=== PATIENT | female | born 1980 | race Caucasian/White ===

== ENCOUNTER 2018-01-17 12:59 | Emergency (ER) | payer MEDICARE, MEDICAID ==
[~2018-01-17] VITALS: Ht 162.6 cm; Wt 100.5 kg
[~2018-01-17 12:59] MED LIST: CYCL-1 PO
[2018-01-17 14:19] VITALS: BP 144/94
== END 2018-01-17 14:21 | disposition home or self-care (01) ==
LOC: ER 13:00
DX: R51 Headache (principal); G89.29 Other chronic pain; Z79.899 Other long term (current) drug therapy
CPT/HCPCS: 99281

== ENCOUNTER 2019-09-01 15:46 | Emergency (ER) | payer MEDICARE, MEDICAID ==
[~2019-09-01] VITALS: Ht 162.6 cm; Wt 69.4 kg
[2019-09-01] MEDS ORDERED: ibuprofen tablet 400 MG TABLET PO ONE (16:50)
[2019-09-01] MEDS ORDERED: IBUP-1984 PO (16:51)
[2019-09-01 17:28] VITALS: BP 140/85
== END 2019-09-01 17:16 | disposition home or self-care (01) ==
LOC: ER 15:46
DX: S93.401A Sprain of unspecified ligament of right ankle, initial encounter (principal); G47.30 Sleep apnea, unspecified; G89.29 Other chronic pain; Z98.890 Other specified postprocedural states; Z88.6 Allergy status to analgesic agent; Z79.899 Other long term (current) drug therapy; W01.0XXA Fall on same level from slipping, tripping and stumbling without subsequent striking against object, initial encounter; Y93.89 Activity, other specified; Y92.89 Other specified places as the place of occurrence of the external cause; Y99.8 Other external cause status
CPT/HCPCS: 29515; 73610; 99284

== ENCOUNTER 2019-10-03 13:06 | Emergency (ER) | payer MEDICARE, MEDICAID ==
[~2019-10-03] VITALS: Ht 162.6 cm; Wt 100.0 kg
[2019-10-03 13:17] VITALS: BP 143/86
[2019-10-03] MEDS ORDERED: ALBU6.7H9 INH (13:43)
[2019-10-03] MEDS ORDERED: AZIT250T2 PO (13:43)
== END 2019-10-03 13:51 | disposition home or self-care (01) ==
LOC: ER 13:06
DX: J40 Bronchitis, not specified as acute or chronic (principal); G47.30 Sleep apnea, unspecified; G89.29 Other chronic pain; Z98.890 Other specified postprocedural states; Z79.899 Other long term (current) drug therapy
CPT/HCPCS: 99283

== ENCOUNTER 2020-02-23 04:41 | Emergency (ER) | payer MEDICARE, MEDICAID ==
[~2020-02-23] VITALS: Ht 162.6 cm; Wt 106.8 kg
[~2020-02-23 04:41] MED LIST changes: +ALBU6.7H9 INH
[2020-02-23 04:45] VITALS: BP 157/84
[2020-02-23] MEDS ORDERED: PENI500T2 PO (05:02)
== END 2020-02-23 05:24 | disposition home or self-care (01) ==
LOC: ER 04:43
DX: K02.9 Dental caries, unspecified (principal); G47.30 Sleep apnea, unspecified; G89.29 Other chronic pain; Z98.890 Other specified postprocedural states; R68.84 Jaw pain; Z79.899 Other long term (current) drug therapy
CPT/HCPCS: 99283

== ENCOUNTER 2020-02-27 04:43 | Emergency (ER) | payer MEDICARE, MEDICAID ==
[~2020-02-27] VITALS: Ht 162.6 cm; Wt 100.0 kg
[~2020-02-27 04:43] MED LIST changes: +PENI500T2 PO
[2020-02-27 04:49] VITALS: BP 161/109
[2020-02-27] MEDS ORDERED: HYDR-4383 PO (06:07)
== END 2020-02-27 06:20 | disposition home or self-care (01) ==
LOC: ER 04:45
DX: M26.602 Left temporomandibular joint disorder, unspecified (principal); K08.89 Other specified disorders of teeth and supporting structures; G47.30 Sleep apnea, unspecified; G89.29 Other chronic pain; Z98.890 Other specified postprocedural states; Z79.899 Other long term (current) drug therapy
CPT/HCPCS: 99282; 99283

== ENCOUNTER 2020-05-21 16:32 | Emergency (ER) | payer MEDICARE, MEDICAID ==
[~2020-05-21] VITALS: Ht 162.6 cm; Wt 100.0 kg
[~2020-05-21 16:32] MED LIST changes: +HYDR-4383 PO; -PENI500T2 PO
[2020-05-21 16:51] VITALS: BP 130/78
--- NOTE | 2020-05-21 20:07 | NUR ---
vascular at bedside.
== END 2020-05-21 20:47 | disposition home or self-care (01) ==
LOC: ER 16:33
DX: M79.661 Pain in right lower leg (principal); R73.03 Prediabetes; G47.30 Sleep apnea, unspecified; G89.29 Other chronic pain; F17.200 Nicotine dependence, unspecified, uncomplicated; Z90.710 Acquired absence of both cervix and uterus; Z79.899 Other long term (current) drug therapy; Z86.718 Personal history of other venous thrombosis and embolism
CPT/HCPCS: 93971; 99284

== ENCOUNTER 2020-08-05 14:36 | Emergency (ER) | payer MEDICARE, MEDICAID ==
[~2020-08-05] VITALS: Ht 162.6 cm; Wt 100.5 kg
[2020-08-05 14:54] VITALS: BP 153/90
[2020-08-05] MEDS ORDERED: AMOX-422 PO (15:46)
== END 2020-08-05 15:58 | disposition home or self-care (01) ==
LOC: ER 14:37
DX: K04.7 Periapical abscess without sinus (principal); G89.29 Other chronic pain; G47.30 Sleep apnea, unspecified; Z98.890 Other specified postprocedural states; Z79.899 Other long term (current) drug therapy
CPT/HCPCS: 99283

== ENCOUNTER 2020-08-26 09:44 | Emergency (ER) | payer MEDICARE, MEDICAID ==
[~2020-08-26] VITALS: Ht 162.6 cm; Wt 100.0 kg
[2020-08-27] MEDS ORDERED: ALBU8HFA PO (11:49)
== END 2020-08-26 10:25 | disposition home or self-care (01) ==
LOC: ER 09:46
DX: B34.9 Viral infection, unspecified (principal); Z20.822 Contact with and (suspected) exposure to COVID-19; G47.30 Sleep apnea, unspecified; G89.29 Other chronic pain; Z98.891 History of uterine scar from previous surgery; Z79.899 Other long term (current) drug therapy
CPT/HCPCS: 36415; 87635; 99283

== ENCOUNTER 2020-08-26 19:02 | Emergency (ER) | payer MEDICARE, MEDICAID ==
[~2020-08-26] VITALS: Ht 162.6 cm; Wt 100.0 kg
[2020-08-27] MEDS ORDERED: ALBU8HFA PO (11:49)
== END 2020-08-26 19:35 | disposition home or self-care (01) ==
LOC: ER 19:03
DX: R05 Cough (principal); M79.10 Myalgia, unspecified site; G47.30 Sleep apnea, unspecified; G89.29 Other chronic pain; Z98.891 History of uterine scar from previous surgery; Z79.899 Other long term (current) drug therapy
CPT/HCPCS: 99282

== ENCOUNTER 2020-08-27 11:02 | Emergency (ER) | payer MEDICARE, MEDICAID ==
[2020-08-27] MEDS ORDERED: ALBU8HFA PO (11:49)
--- NOTE | 2020-08-27 12:04 | NUR ---
Lab went to [facility] area to draw pt, but was unable to locate her.
--- NOTE | 2020-08-27 12:17 | NUR ---
Pauline RN currently assigned RAP was in a code and had not engaged w/ this pt.PA Fields aware pt not around.
--- NOTE | 2020-08-27 12:35 | NUR ---
Called patient and discussed need to be seen. patient stated that, "I saw so many ambulances, I just wasn't sure how long the wait would be." Patient proceeded to inform me that she got a ride over to [facility] to be seen in the ER there. Patient stated that she thinks its anxiety and that she will just go home and if getting worse will come back to ED. I educated her that its her decision overall and that we will be here whenever she needs to be seen. Patient agreed, stating that she was just awaiting a ride home from [facility].
== END 2020-08-27 12:58 | disposition left against medical advice (07) ==
LOC: ER 11:03
DX: R06.00 Dyspnea, unspecified (principal); R07.89 Other chest pain; G89.29 Other chronic pain; Z98.890 Other specified postprocedural states; Z79.899 Other long term (current) drug therapy
CPT/HCPCS: 99283

== ENCOUNTER 2020-11-03 20:30 | Emergency (ER) | payer MEDICARE, MEDICAID ==
[~2020-11-03] VITALS: Ht 162.6 cm; Wt 90.9 kg
[2020-11-03 20:34] VITALS: BP 149/94
--- NOTE | 2020-11-03 20:40 | NUR ---
PATIENT TAKES KRATOM DAILY
== END 2020-11-03 23:22 | disposition home or self-care (01) ==
LOC: ER 20:30
DX: H92.02 Otalgia, left ear (principal); F17.200 Nicotine dependence, unspecified, uncomplicated; G89.29 Other chronic pain; G47.30 Sleep apnea, unspecified; Z98.890 Other specified postprocedural states; Z79.899 Other long term (current) drug therapy
CPT/HCPCS: 99283

== ENCOUNTER 2022-07-08 18:48 | Emergency (ER) | payer MEDICARE, MEDICAID ==
[~2022-07-08] VITALS: Ht 162.6 cm; Wt 86.4 kg
[~2022-07-08 18:48] MED LIST changes: +ALBU6.7H14 INH; -ALBU6.7H9 INH
[2022-07-08 19:01] VITALS: BP 140/93
[2022-07-08 19:44] LABS: BASOPHILS % (AUTO) 0.6 % (0-1); EOSINOPHILS # (AUTO) 0.2 X10'3 (0-0.9); EOSINOPHILS % (AUTO) 2.4 % (0-6); HEMATOCRIT 39.2 % (35.0-45.0); HEMOGLOBIN 13.3 g/dl (12.0-16.0); LYMPHOCYTES # (AUTO) 1.6 X10'3 (1.1-4.8); LYMPHOCYTES % (AUTO) 22.9 % (21-51); MEAN CORPUSCULAR HEMOGLOBIN 30.7 PG (27.0-31.0); MEAN CORPUSCULAR HGB CONC 33.9 g/dL (33.0-36.5); MEAN CORPUSCULAR VOLUME 90.4 FL (78-98); MEAN PLATELET VOLUME 6.7 FL (7.4-10.4); MONOCYTES # (AUTO) 0.3 X10'3 (0-0.9); MONOCYTES % (AUTO) 4.5 % (2-12); NEUTROPHILS # (AUTO) 4.9 X10'3 (1.8-7.7); NEUTROPHILS % (AUTO) 69.6 % (42-75); PLATELET COUNT 249 X10'3 (140-440); RED BLOOD COUNT 4.34 X10'6 (4.20-5.60); RED CELL DISTRIBUTION WIDTH 13.3 % (11.5-14.5); WHITE BLOOD COUNT 7.1 X10'3 (4.5-11.0)
[2022-07-08 19:59] LABS: ALANINE AMINOTRANSFERASE 39 U/L (12-78); ALBUMIN 3.6 G/DL (3.4-5.0); ALKALINE PHOSPHATASE 105 IU/L (46-116); ANION GAP 7 (8-16); ASPARTATE AMINO TRANSFERASE 25 U/L (10-37); BILIRUBIN,TOTAL 0.2 MG/DL (0.1-1.0); BLOOD UREA NITROGEN 15 MG/DL (7-18); BUN/CREATININE RATIO 24.2 (6.6-38.0); CALCIUM 8.3 MG/DL (8.5-10.1); CHLORIDE 106 MMOL/L (99-107); CREATININE 0.62 MG/DL (0.40-0.90); GLUCOSE 105 MG/DL (70-104); LIPASE 78 U/L (73-393); POTASSIUM 3.8 MMOL/L (3.5-5.1); SODIUM 141 MMOL/L (135-145); TOTAL CARBON DIOXIDE 27.8 MMOL/L (24-32); TOTAL PROTEIN 7.2 G/DL (6.4-8.2); eGFR > 90 ML/MIN
== END 2022-07-08 23:44 | disposition left against medical advice (07) ==
LOC: ER 18:48
DX: R10.31 Right lower quadrant pain (principal); Z53.21 Procedure and treatment not carried out due to patient leaving prior to being seen by health care provider
CPT/HCPCS: 36415; 80053; 83690; 85025; 99283

== ENCOUNTER 2023-05-27 23:09 | Emergency (ER) | payer MEDICARE, MEDICAID ==
[~2023-05-27] VITALS: Ht 162.6 cm; Wt 85.0 kg
[2023-05-28] MEDS ORDERED: NO HOME MEDS (00:16)
[2023-05-28 00:31] LABS: BASOPHILS # (AUTO) 0.1 X10'3 (0-0.2); EOSINOPHILS # (AUTO) 0.1 X10'3 (0-0.9); MONOCYTES # (AUTO) 0.4 X10'3 (0-0.9); PLATELET COUNT 221 X10'3 (140-440)
[2023-05-28 00:37] LABS: BASOPHILS % (AUTO) 1.1 % (0-1); EOSINOPHILS % (AUTO) 1.2 % (0-6); HEMATOCRIT 39.3 % (35.0-45.0); HEMOGLOBIN 13.7 g/dl (12.0-16.0); LYMPHOCYTES # (AUTO) 2.2 X10'3 (1.1-4.8); LYMPHOCYTES % (AUTO) 26.8 % (21-51); MEAN CORPUSCULAR HEMOGLOBIN 30.6 PG (27.0-31.0); MEAN CORPUSCULAR HGB CONC 34.8 g/dL (33.0-36.5); MEAN CORPUSCULAR VOLUME 88.1 FL (78-98); MEAN PLATELET VOLUME 7.5 FL (7.4-10.4); MONOCYTES % (AUTO) 4.7 % (2-12); NEUTROPHILS # (AUTO) 5.5 X10'3 (1.8-7.7); NEUTROPHILS % (AUTO) 66.2 % (42-75); RED BLOOD COUNT 4.46 X10'6 (4.20-5.60); RED CELL DISTRIBUTION WIDTH 12.5 % (11.5-14.5); WHITE BLOOD COUNT 8.2 X10'3 (4.5-11.0)
[2023-05-28 00:40] LABS: ALANINE AMINOTRANSFERASE 19 U/L (12-78); ALBUMIN 3.5 G/DL (3.4-5.0); ALKALINE PHOSPHATASE 99 IU/L (46-116); ANION GAP 6 (8-16); ASPARTATE AMINO TRANSFERASE 18 U/L (10-37); BILIRUBIN,TOTAL 0.3 MG/DL (0.1-1.0); BLOOD UREA NITROGEN 9 MG/DL (7-18); CALCIUM 8.5 MG/DL (8.5-10.1); CHLORIDE 101 MMOL/L (99-107); CREATININE 0.69 MG/DL (0.40-0.90); GLUCOSE 104 MG/DL (70-104); POTASSIUM 3.4 MMOL/L (3.5-5.1); SODIUM 136 MMOL/L (135-145); TOTAL CARBON DIOXIDE 28.7 MMOL/L (24-32); eCRCL 91 ML/MIN; eGFR > 90 ML/MIN
[2023-05-28 00:48] LABS: PRO BRAIN NATRIURETIC PEPTIDE < 30 PG/ML (0-125)
[2023-05-28] MEDS ORDERED: AMOX500C2 PO (01:09)
[2023-05-28 01:17] VITALS: BP 150/99; PULSE 85; RESP 17; TEMP 99; O2SAT 98
== END 2023-05-28 01:19 | disposition home or self-care (01) ==
LOC: ER 23:09
DX: K04.7 Periapical abscess without sinus (principal); M25.512 Pain in left shoulder; R07.9 Chest pain, unspecified
CPT/HCPCS: 36415; 71045; 80053; 83880; 84484; 85025; 93005; 99285

== ENCOUNTER → 2023-10-13 | Outpatient (CLI) | payer MEDICARE, MEDICAID ==
[~2023-10-13] MED LIST changes: -ALBU6.7H14 INH; -CYCL-1 PO; +GOLYS PO; -HYDR-4383 PO; +NO HOME MEDS
== END | disposition home or self-care (01) ==
LOC: RAD 11:21
PROVIDERS: ATTEND Family Medicine
DX: K59.00 Constipation, unspecified (principal)
CPT/HCPCS: 74018

== ENCOUNTER → 2023-10-14 | Emergency (ER) | payer MEDICARE, MEDICAID ==
[~2023-10-14] VITALS: Ht 165.1 cm; Wt 87.3 kg
[2023-10-14] MEDS: methylnaltrexone br 12mg/0.6ml inj***SubQ only SQ ONE (14:08)
[2023-10-14 15:30] VITALS: BP 150/85; PULSE 72; RESP 16; TEMP 98; O2SAT 100
== END | disposition home or self-care (01) ==
LOC: ER 12:41
DX: K59.00 Constipation, unspecified (principal); G89.29 Other chronic pain; M54.9 Dorsalgia, unspecified; Z91.030 Bee allergy status; G47.30 Sleep apnea, unspecified
CPT/HCPCS: 96372; 99283; J2212

== ENCOUNTER → 2023-12-25 | Outpatient (CLI) | payer MEDICARE, MEDICAID ==
[~2023-12-25] MED LIST changes: +AMOX-102 PO
== END | disposition home or self-care (01) ==
LOC: RAD 11:45
PROVIDERS: ATTEND Physician Assistant
DX: M25.512 Pain in left shoulder (principal)
CPT/HCPCS: 73030

== ENCOUNTER 2024-01-20 21:57 | Emergency (ER) | payer MEDICARE, MEDICAID ==
[~2024-01-20] VITALS: Ht 162.6 cm; Wt 84.1 kg
[2024-01-20 22:07] VITALS: BP 144/82; PULSE 75; RESP 18; TEMP 98.5; O2SAT 100
[2024-01-20] MEDS ORDERED: AMOX500C2 PO (22:47)
== END 2024-01-20 22:58 | disposition home or self-care (01) ==
LOC: ER 21:58
DX: K08.89 Other specified disorders of teeth and supporting structures (principal); Z91.030 Bee allergy status; Z79.2 Long term (current) use of antibiotics; Z98.890 Other specified postprocedural states
CPT/HCPCS: 99283

== ENCOUNTER 2024-03-06 11:30 | Emergency (ER) | payer MEDICARE, MEDICAID ==
[~2024-03-06] VITALS: Ht 165.1 cm; Wt 84.1 kg
[2024-03-06] MEDS ORDERED: ketorolac trometh 15mg/ml vial 15 MG/ML ML IM ONE (13:05)
[2024-03-06] MEDS: ketorolac trometh 30MG/ML vial 30 MG/ML VIAL IM ONE (13:26)
[2024-03-06 14:03] VITALS: BP 99/57; PULSE 63; TEMP 97.2; O2SAT 94
[2024-03-06 14:06] VITALS: RESP 14
== END 2024-03-06 14:07 | disposition home or self-care (01) ==
LOC: ER 11:31
DX: S76.811A Strain of other specified muscles, fascia and tendons at thigh level, right thigh, initial encounter (principal); M25.551 Pain in right hip; G89.29 Other chronic pain; M54.9 Dorsalgia, unspecified; G47.39 Other sleep apnea; Z79.2 Long term (current) use of antibiotics; Z98.890 Other specified postprocedural states; W01.0XXA Fall on same level from slipping, tripping and stumbling without subsequent striking against object, initial encounter; Y93.89 Activity, other specified; Y92.89 Other specified places as the place of occurrence of the external cause; Y99.8 Other external cause status
CPT/HCPCS: 73502; 96372; 99284; J1885

== ENCOUNTER 2024-09-22 10:59 | Emergency (ER) | payer MEDICARE, MEDICAID ==
[~2024-09-22] VITALS: Ht 162.6 cm; Wt 87.2 kg
[2024-09-22 11:04] VITALS: BP 118/82; PULSE 71; RESP 18; O2SAT 99
[2024-09-22] MEDS ORDERED: AMOX-117 PO (11:24)
[2024-09-22 11:41] VITALS: TEMP 97.7
== END 2024-09-22 11:52 | disposition home or self-care (01) ==
LOC: ER 11:00
DX: K08.89 Other specified disorders of teeth and supporting structures (principal); G47.30 Sleep apnea, unspecified
CPT/HCPCS: 99283

== ENCOUNTER 2024-12-11 11:48 | Emergency (ER) | payer MEDICARE, MEDICAID ==
[~2024-12-11] VITALS: Ht 162.6 cm; Wt 84.1 kg
[2024-12-11 11:50] VITALS: BP 129/77; PULSE 75; RESP 18; TEMP 97.5; O2SAT 99
--- NOTE | 2024-12-11 12:04 | Physician Documentation ---
HPI ~ General Chief Complaint: Tooth Problem Stated Complaint: TOOTH PAIN Time Seen by MD: 12:03 Primary Medical Doctor: [facility] History of Present Illness HPI Comment This is a 44-year-old female who presents to the emergency department reporting that she has had a dental abscess above the left 2nd incisor. She reports that this has been spontaneously draining, she does have an upcoming dental appt. She denies chills or fever, CP or dyspnea, or vomiting but does note some issues w ith nausea. Medication Reconciliation Allergies: Uncoded Allergies: BEES (Allergy, Severe, 11/03/20) Scheduled Amoxicillin Trihydrate (Amoxicillin), 1 CAP PO Q8H Clindamycin HCl (Clindamycin HCl), 1 CAP PO Q12H Peg 3350/Na Sulf,Bicarb,Cl/KCl (Golytely Solution), 0 PO UD Miscellaneous Medications Home Med List (No Home Medications), (Reported) Past Medical History Past Medical History: Sleep Apnea, Chronic Back Pain Past Surgical History: Alcohol Use: None Drug Use: none Lives with: Family Lives In: Home Review of Systems ROS As stated above in the HPI, otherwise all systems are reviewed and negative. Physical Exam Vital Signs: Temperature: 97.5, Source: Temporal, Heart Rate: 75, Respiratory Rate: 18, BP: 129/77, Pulse Oximetry: 99, Weight: 84.090 Oxygen Flow Rate: 0 Physical Exam General: Alert, no apparent distress. HEENT: PERRL, EOMI, no injection, moist mucous membranes. Globally poor dentition. Top two left incisors are just stumps and surrounded by erythema. No abscess noted. No trismus. Uvula visible/midline. Neck: Full range of motion. Respiratory: Lungs clear, no respiratory distress. Chest: No accessory muscle use. Cardiovascular: Regular rate and rhythm, no murmurs. Gastrointestinal: Soft, nontender, nondistended. Bowels sounds present. Extremities: Normal range of motion, no deformity. Neurologic: Oriented x4. Psychiatric: Normal mood and affect. Skin: Normal color, warm and dry. No edema, no ecchymosis. Progress Results/Orders Results/Orders Completed Orders - LAMBERTO ROGERS NP Clindamycin Capsule (Cleocin Capsule) (12/11/24 12:20) Medications Received in ER Medications (Trade) Dose Ordered Sig/Kasie Route PRN Reason Start Time Stop Time Status Last Admin Dose Admin (Cleocin capsule) 300 mg ONCE ONCE PO 12/11/24 12:20 12/11/24 12:21 DC 12/11/24 12:20 300 MG Vital Signs 12/11/24 11:50 Temp 97.5 Pulse 75 Resp 18 B/P (MAP) 129/77 Pulse Ox 99 O2 Flow Rate 0 Medical Decision Making Differential Dx:Considerations: Include: Alveolar fracture, Alveolar osteitis, ANUG, Facial Cellulitis, Periapical abscess, Peridontal abscess, Post-extraction bleeding, Pulpitis, Tooth avulsion, Tooth eruption, Tooth Fracture, Trigeminal neuralgia, Tooth subluxation Additional Comment Non toxic appearing without trismus. No abscess. Appropriate for discharge and outpatient antibiotics. Departure Time of Disposition: 12:10 Disposition: 01 HOME / SELF CARE / HOMELESS Impression: Primary Impression: Dental abscess Additional Impression: Toothache Condition: Stable Discharge Instructions: Dental Pain, Dental Abscess Additional Instructions: See your dentist as soon as possible. Take the antibiotics as prescribed. Please return if worse. Use ibuprofen per [id number] labeling as needed for pain. Referrals: NO PRIMARY CARE PROVIDER (PCP) Prescriptions Clindamycin HCl (Clindamycin HCl) 300 Mg Capsule 1 CAP PO Q12H for 7 Days, #14 CAP Prov: LAMBERTO ROGERS NP 12/11/24 Education Educated: Patient Educated regarding: diagnosis, treatment, prognosis, need for follow up Signature Scribe Signature: no scribe Attestation: The note accurately reflects work and decisions made by me.Lamberto Salgado NP 12/11/24 12:09 LAMBERTO ROGERS NP Dec 11, 2024 12:04
[2024-12-11] MEDS ORDERED: CLIN-197 PO (12:18)
[2024-12-11] MEDS: clindamycin 150mg capsule PO ONE (12:20)
== END 2024-12-11 12:30 | disposition home or self-care (01) ==
LOC: ER 11:49
DX: K04.7 Periapical abscess without sinus (principal); G47.30 Sleep apnea, unspecified
CPT/HCPCS: 99283

== ENCOUNTER 2024-12-13 09:35 | Emergency (ER) | payer MEDICARE, MEDICAID ==
[~2024-12-13] VITALS: Ht 162.6 cm; Wt 66.7 kg
[~2024-12-13 09:35] MED LIST changes: +CLIN-197 PO
[2024-12-13 09:41] VITALS: BP 132/83; PULSE 68; O2SAT 96
[2024-12-13] MEDS ORDERED: AMOX-117 PO (11:05)
--- NOTE | 2024-12-13 11:06 | Physician Documentation ---
HPI ~ General Chief Complaint: Tooth Problem Stated Complaint: TOOTH PAIN Time Seen by MD: 09:57 Primary Medical Doctor: [facility] History of Present Illness HPI Comment This 44-year-old female presents to the ED after being seen hair to three days ago for a dental abscess of the and placed on clindamycin. She has had increasing pain swollen on the left side. Denies any fevers however. Denies any nausea vomiting states she has left facial pain for She says she has been on Augmentin before not worked better for her to the abscesses Day of Onset: Dec 13, 2024 Medication Reconciliation Allergies: Uncoded Allergies: BEES (Allergy, Severe, 11/03/20) Scheduled Amoxicillin Trihydrate (Amoxicillin), 1 CAP PO Q8H Clindamycin HCl (Clindamycin HCl), 1 CAP PO Q12H Peg 3350/Na Sulf,Bicarb,Cl/KCl (Golytely Solution), 0 PO UD Miscellaneous Medications Home Med List (No Home Medications), (Reported) Past Medical History Past Medical History: Sleep Apnea, Chronic Back Pain Past Surgical History: Smoking Status: Current every day smoker Alcohol Use: None Drug Use: none Lives with: Family Lives In: Home Physical Exam Vital Signs: Temperature: 97.0, Source: Temporal, Heart Rate: 68, Respiratory Rate: 15, BP: 132/83, Pulse Oximetry: 96, Weight: 66.650 Physical Exam General: Alert, no apparent distress. HEENT: PERRL, EOMI, no injection, moist mucous membranes. Caries throughout the oral cavity notable inflammation in the upper left region of the oral cavity in an in the molar region no notable abscesses no drainage Neck: Full range of motion. No submandibular swelling Psychiatric: Normal mood and affect. Skin: Normal color, warm and dry. No edema, no ecchymosis. Progress Results/Orders Results/Orders Completed Orders - KIN CABELLO PHYSICAL EDUCATION DEPARTMENT CHAIR Amox Tr/Potassium Clavulanate (Augmentin (12/13/24 10:45) Ketorolac Trometh 30mg/Ml Vial (Toradol (12/13/24 10:45) Vital Signs 12/13/24 09:41 Temp 97.0 Pulse 68 Resp 15 B/P (MAP) 132/83 Pulse Ox 96 Medical Decision Making Findings going to change the patient's antibiotics to Augmentin. She remains nontoxic appearing and hemodynamically stable Differential Dx:Considerations: Include: Alveolar fracture, Alveolar osteitis, ANUG, Facial Cellulitis, Periapical abscess, Peridontal abscess, Post-extraction bleeding, Pulpitis, Tooth avulsion, Tooth eruption, Tooth Fracture, Trigeminal neuralgia, Tooth subluxation, Other Departure Disposition: 01 HOME / SELF CARE / HOMELESS Impression: Primary Impression: Dental caries Additional Impression: Dental abscess Condition: Stable Discharge Instructions: Dental Caries, Adult Referrals: NO PRIMARY CARE PROVIDER (PCP) Prescriptions Amox Tr/Potassium Clavulanate (Augmentin 875-125 Tablet) 1 Each Tablet 1 TAB PO Q12H for 10 Days, #20 TAB Prov: KIN CABELLO NP 12/13/24 Education Educated: Patient Educated regarding: diagnosis Signature Scribe Signature: r Attestation: The note accurately reflects work and decisions made by me.Kin Salgado NP 12/13/24 11:06 KIN CABELLO NP Dec 13, 2024 11:06
[2024-12-13 11:10] VITALS: RESP 16
[2024-12-13] MEDS: ketorolac trometh 30MG/ML vial 30 MG/ML VIAL IM ONE (11:10)
[2024-12-13] MEDS: amox tr/potassium clavulanate 875/125mg TAB PO ONE (11:10)
[2024-12-13 11:16] VITALS: TEMP 97
== END 2024-12-13 11:18 | disposition home or self-care (01) ==
LOC: ER 09:36
DX: K04.7 Periapical abscess without sinus (principal); K02.9 Dental caries, unspecified; F17.200 Nicotine dependence, unspecified, uncomplicated; G47.30 Sleep apnea, unspecified
CPT/HCPCS: 99283

== ENCOUNTER 2025-01-12 22:36 | Emergency (ER) | payer MEDICARE, MEDICAID ==
[~2025-01-12] VITALS: Ht 165.1 cm; Wt 82.8 kg
[~2025-01-12 22:36] MED LIST changes: -CLIN-197 PO
[2025-01-12 22:39] VITALS: BP 139/90; PULSE 65; RESP 16; TEMP 97.5; O2SAT 99
--- NOTE | 2025-01-12 23:07 | Physician Documentation ---
History of Present Illness ~ Chief Complaint: Sore Throat Stated Complaint: TOOTH PAIN Time Seen by MD: 22:52 Primary Medical Doctor: [facility] HPI This 44-year-old female patient presents to the ED with a complaint of swallowing part of her fracture or tooth this evening. States she feels a scratchy feeling in her throat after doing so. She also reports that she is going to the dentist soon and having many of her teeth removed so she can have dentures.. She denies any difficulty swallowing denies any shortness of breath cough Day of Onset: Jan 12, 2025 Medication Reconciliation Allergies: Uncoded Allergies: BEE VENOM (Allergy, Unknown, 01/12/25) Scheduled Amoxicillin Trihydrate (Amoxicillin), 1 CAP PO Q8H Peg 3350/Na Sulf,Bicarb,Cl/KCl (Golytely Solution), 0 PO UD Miscellaneous Medications Home Med List (No Home Medications), (Reported) Past Medical History Past Medical History: Sleep Apnea, Chronic Back Pain Past Surgical History: Alcohol Use: None Drug Use: none Lives with: Family Lives In: Home Review of Systems All Other Systems at this time: Reviewed and Negative ROS As stated above in the HPI, otherwise all systems are reviewed and negative. Physical Exam Vital Signs: Temperature: 97.5, Source: Temporal, Heart Rate: 65, Respiratory Rate: 16, BP: 139/90, Pulse Oximetry: 99, Weight: 82.850 Oxygen Flow Rate: 0 Physical Exam General: Alert, no apparent distress. oral: Or dentition throughout oral cavity notable fractured tooth on the lower left molar region Respiratory: Lungs clear, no respiratory distress. Psychiatric: Normal mood and affect. Skin: Normal color, warm and dry. No edema, no ecchymosis. Progress Results/Orders Results/Orders Vital Signs 01/12/25 22:39 Temp 97.5 Pulse 65 Resp 16 B/P (MAP) 139/90 Pulse Ox 99 O2 Flow Rate 0 Medical Decision Making Findings Patient feels well presented ED acute distress. I suspect suspect patient will process the fractured tooth through her GI tract. She does not present in any respiratory distress. Reassured the patient advise her to evaluate her stool for the fracture tooth Tooth Diff. Dx: Considerations: Include: Alveolar fracture, Aveolar osteitis, ANUG, Facial cellulitis, Periapical abscess, Periodontal abscess, Post- extraction bleeding, Pulpitis, Trigeminal neuralgia, Tooth-avulsion, Tooth- eruption, Tooth-fracture, Tooth-subluxation, Other Departure Disposition: 01 HOME / SELF CARE / HOMELESS Impression: Primary Impression: Irritation of pharynx Condition: Stable Referrals: NO PRIMARY CARE PROVIDER (PCP) Signature Scribe Signature: m Attestation: Scribed for Kin Cabello Light Oil Operator by Kin Salgado NP . 01/12/25 23:06 KIN CABELLO NP Jan 12, 2025 23:07
== END 2025-01-13 01:01 | disposition home or self-care (01) ==
LOC: ER 22:37
DX: J39.2 Other diseases of pharynx (principal); G47.30 Sleep apnea, unspecified
CPT/HCPCS: 99282

== ENCOUNTER 2025-04-15 13:23 | Emergency (ER) | payer MEDICARE, MEDICAID ==
[~2025-04-15] VITALS: Ht 162.6 cm; Wt 78.3 kg
[2025-04-15 13:35] VITALS: BP 113/74; PULSE 74; RESP 18; TEMP 98.7; O2SAT 97
[2025-04-15] MEDS ORDERED: AMOX500C2 PO (14:32)
--- NOTE | 2025-04-15 14:33 | Physician Documentation ---
HPI ~ General Chief Complaint: Tooth Problem Stated Complaint: TOOTH PAIN Time Seen by MD: 14:03 Primary Medical Doctor: [facility] Source: patient Mode of Arrival: POV Exam Limitations: no limitations History of Present Illness HPI Comment Patient with known history of multiple caries and multiple abscessed teeth in the past waiting for multiple teeth extractions. Presents secondary to neck pain up the back of the head. Believes it is secondary to her multiple broken teeth. No fevers. Positive chills. No dizziness, lightheadedness or syncope. No chest pain or pressure. Taking ibuprofen with some improvement. Has not been on antibiotics for the past few months. Medication Reconciliation Allergies: Uncoded Allergies: BEE VENOM (Allergy, Unknown, 01/12/25) Scheduled Amoxicillin Trihydrate (Amoxicillin), 1 CAP PO Q8H Amoxicillin Trihydrate* (Amoxicillin*), 2 CAP PO Q12H Peg 3350/Na Sulf,Bicarb,Cl/KCl (Golytely Solution), 0 PO UD Miscellaneous Medications Home Med List (No Home Medications), (Reported) Past Medical History Past Medical History: Sleep Apnea, Chronic Back Pain Past Surgical History: Alcohol Use: None Drug Use: none Lives with: Family Lives In: Home Review of Systems ROS Review of systems negative except documented in HPI. Physical Exam Vital Signs: RN Vital Signs have been reviewed: Yes, Temperature: 98.7, Source: Oral, Heart Rate: 74, Respiratory Rate: 18, BP: 113/74, Pulse Oximetry: 97, Weight: 78.300 Oxygen Flow Rate: 0 Pulse Oximetry Reflects: adequate oxygenation Physical Exam General: Awake, alert, oriented. No apparent distress Dental: There is multiple broken teeth. No obvious abscess. Respiratory: Lungs are clear to auscultation bilaterally. No respiratory distress. Neck: Normal range of motion. Chest: Normal shape and size. No accessory muscle use. Cardiovascular: Regular rate and rhythm. S1-S2. No murmur, gallop, rub. Gastrointestinal: Abdomen is soft. Nontender to palpation. Bowel sounds present. Extremities: No lower extremity edema, cyanosis or clubbing. Neurologic: Alert and oriented x4. Nonfocal Psychiatric: Normal mood and affect. Skin: Normal color. Warm and dry. Progress Results/Orders Results/Orders Completed Orders - ASHOK WOMACK NP Amoxicillin Capsule (Trimox Capsule) (04/15/25 14:30) Medications Received in ER Medications (Trade) Dose Ordered Sig/Kasie Route PRN Reason Start Time Stop Time Status Last Admin Dose Admin (Trimox capsule) 1,000 mg ONCE ONCE PO 04/15/25 14:30 04/15/25 14:33 DC 04/15/25 14:40 1,000 MG Vital Signs 04/15/25 13:35 Temp 98.7 Pulse 74 Resp 18 B/P (MAP) 113/74 Pulse Ox 97 O2 Flow Rate 0 Medical Decision Making Findings Patient presents with complaints of dental pain. Not immunosuppressed. Afebrile. Well-appearing. Patent airway. Low clinical suspicion for deep space infection and there is no concern for airway compromise. No evidence of tooth fracture, avulsion, bleeding socket. No evidence of Placido's angina, periapical abscess. Patient instructed to treat pain with ibuprofen/acetaminophen until they see a dentist. Patient was treated for dental abscess with abx. Instructed to use warm salt water rinses. Discussed return precautions. Differential Dx:Considerations: Include: Alveolar fracture, Alveolar osteitis, Facial Cellulitis, Periapical abscess, Peridontal abscess, Post-extraction bleeding, Pulpitis, Tooth avulsion, Tooth eruption, Tooth Fracture, Trigeminal neuralgia, Tooth subluxation Departure Time of Disposition: 14:31 Disposition: HOME / SELF CARE / HOMELESS Impression: Primary Impression: Dental abscess Condition: Stable Discharge Instructions: Dental Pain Additional Instructions: Take antibiotics to completion. Follow up with your dentist. Warm salt water rinses may help. Continue ibuprofen. Referrals: NO PRIMARY CARE PROVIDER (PCP) Prescriptions Amoxicillin Trihydrate* (Amoxicillin*) 500 Mg Capsule 2 CAP PO Q12H for 10 Days, #40 CAP Prov: ASHOK WOMACK NP 04/15/25 Education Educated: Patient Educated regarding: diagnosis, treatment, need for follow up Signature Scribe Signature: No scribe Attestation: The note accurately reflects work and decisions made by me.Ashok Womack - SMOOTH 04/15/25 15:45 This note was created with the assistance of voice recognition software whereby errors in grammar, syntax, and/or spelling may have occurred despite active proofreading efforts by the author. Please do not hesitate to contact the provider for clarification or for questions regarding the content of this document. ASHOK WOMACK NP Apr 15, 2025 14:32
== END 2025-04-15 14:45 | disposition home or self-care (01) ==
LOC: ER 13:23
DX: K04.7 Periapical abscess without sinus (principal); G89.29 Other chronic pain; G47.30 Sleep apnea, unspecified; Z98.890 Other specified postprocedural states
CPT/HCPCS: 99283